=== PATIENT | female | born 1990 | race Two or more races ===

== ENCOUNTER 2020-03-22 10:11 | Emergency (ER) | payer OTHER ==
[~2020-03-22] VITALS: Ht 154.9 cm; Wt 48.1 kg
== END 2020-03-24 13:32 | disposition home or self-care (01) ==
LOC: ER 10:11
DX: L02.31 Cutaneous abscess of buttock (principal); L03.317 Cellulitis of buttock; B95.61 Methicillin susceptible Staphylococcus aureus infection as the cause of diseases classified elsewhere; T48.295A Adverse effect of other drugs acting on muscles, initial encounter; Y92.89 Other specified places as the place of occurrence of the external cause; Z03.818 Encounter for observation for suspected exposure to other biological agents ruled out
CPT/HCPCS: 49406; 72193; Q9965

== ENCOUNTER 2020-06-17 15:20 | Emergency (ER) | payer OTHER ==
[~2020-06-17] VITALS: Ht 172.7 cm; Wt 73.5 kg
== END 2020-06-17 19:53 | disposition home or self-care (01) ==
LOC: ER 15:20
DX: L02.31 Cutaneous abscess of buttock (principal); T49.3X5A Adverse effect of emollients, demulcents and protectants, initial encounter; Y92.89 Other specified places as the place of occurrence of the external cause; Z20.822 Contact with and (suspected) exposure to COVID-19

== ENCOUNTER 2020-07-05 06:05 | Emergency (ER) | payer OTHER ==
[~2020-07-05] VITALS: Ht 172.7 cm; Wt 73.5 kg
== END 2020-07-05 10:21 | disposition home or self-care (01) ==
LOC: ER 06:05
DX: L02.31 Cutaneous abscess of buttock (principal); B95.61 Methicillin susceptible Staphylococcus aureus infection as the cause of diseases classified elsewhere; L03.317 Cellulitis of buttock

== ENCOUNTER 2020-08-23 18:25 | Inpatient (IN) | payer OTHER ==
[~2020-08-23] VITALS: Ht 172.7 cm; Wt 73.5 kg
--- NOTE | 2020-08-23 18:45 | NUR ---
SE RECIBE PACIENTE ALERTA, ORIENTADA X 3 ESFERAS REFIERE TENER ABSCESO EN AREA DE GLUTEO TYLER HACE 7 HOUSE.
--- NOTE | 2020-08-23 20:11 | NUR ---
IV LINE IS STARTED ON PATIENT'S RIGHT HAND AND BLOOD SAMPLES ARE TAKEN IN ORDER TO COMPLETE LABS. SALINE LOCK IS PLACED ON IV LINE AND IV MEDS AND IV FLUIDS ARE ADMINISTERED ACCORDINGLY.
[2020-08-28] MEDS ORDERED: INTESTINEX680 M1 PO (17:00)
[2020-08-28] MEDS ORDERED: PEPCID AC20 MG PO (17:00)
[2020-08-28] MEDS ORDERED: MOXIFLOXACIN H400 MG PO (17:00)
== END 2020-08-29 07:17 | disposition home or self-care (01) | DRG 603 ==
LOC: ER 18:25 → MEDJ 22:14
PROVIDERS: ADMIT Internal Medicine; ATTEND Internal Medicine
PROC: 0Y9130Z Drainage of Left Buttock with Drainage Device, Percutaneous Approach (ICD-10-PCS; principal; 2020-08-23)
PROC: 8E0ZXY6 Isolation (ICD-10-PCS; 2020-08-26)
PROC: 02HV33Z Insertion of Infusion Device into Superior Vena Cava, Percutaneous Approach (ICD-10-PCS; 2020-08-26)
PROC: 0WP Anatomical Regions, General, Removal (ICD-10-PCS; 2020-08-28)
PROC: 02PY33Z Removal of Infusion Device from Great Vessel, Percutaneous Approach (ICD-10-PCS; 2020-08-28)
DX: L02.31 Cutaneous abscess of buttock (principal); B95.61 Methicillin susceptible Staphylococcus aureus infection as the cause of diseases classified elsewhere; L03.317 Cellulitis of buttock
CPT/HCPCS: 72198

== ENCOUNTER 2021-06-03 10:49 | Emergency (ER) | payer OTHER ==
[~2021-06-03] VITALS: Ht 172.7 cm; Wt 77.1 kg
[~2021-06-03 10:49] MED LIST: INTESTINEX680 M1 PO; MOXIFLOXACIN H400 MG PO; PEPCID AC20 MG PO
[2021-06-03] MEDS ORDERED: NAPROXEN500 MG (11:03)
== END 2021-06-03 17:18 | disposition home or self-care (01) ==
LOC: ER 10:49
DX: L02.31 Cutaneous abscess of buttock (principal)

== ENCOUNTER 2023-12-15 09:00 | Emergency (ER) | payer OTHER ==
[~2023-12-15] VITALS: Ht 172.7 cm; Wt 92.5 kg
[~2023-12-15 09:00] MED LIST changes: +NAPROXEN500 MG
[2023-12-15 09:08] VITALS: BP 136/70; O2SAT 100
[2023-12-15] MEDS ORDERED: KETOROLAC TROMETHAMINE 60 MG VIAL IM ONE ×2 (09:26→09:30)
[2023-12-15 09:52] LABS: HEMATOCRIT 36.6 % (36.0-45.00); HEMOGLOBIN 12.7 g/dL (12.0-15.00); MEAN CELL VOLUME 90.4 fL (80.00-100.00); MEAN CORPUSCULAR HEMOGLOBIN 31.5 pg (27.00-32.0); MEAN CORPUSCULAR HGB CONC 34.8 g/dl (32.0-36.0); PLATELET COUNT 260 K/uL (150-450); RED BLOOD COUNT 4.05 M/uL (4.00-6.00); RED CELL DISTRIBUTION WIDTH 13.7 % (11.5-14.5)
[2023-12-15 10:35] LABS: ERYTHROCYTE SEDIMENTATION RATE 30 mm/hr
[2023-12-15 10:48] LABS: ANION GAP 6 (10.0-20.0); BLOOD UREA NITROGEN 15 mg/dL (7-18); BUN CREA RATIO 22 (7.0-25.0); CALCIUM 9.7 mg/dL (8.5-10.1); CARBON DIOXIDE 30 mEq/L (21-32); CHLORIDE 108 mmol/L (98-107); CREATININE SERUM 0.68 mg/dL (0.55-1.02); GFR 100.27; GLUCOSE FASTING 51 mg/dL (65-100); OSMOLALITY SERUM 278 MOSM/KG (275-295); POTASSIUM 4.02 mEq/L (3.5-5.1); SODIUM 140 mmol/L (136-145)
[2023-12-15 11:01] LABS: C-REACTIVE PROTEIN 0.33 MG/DL (0.00-0.29)
[2023-12-15 11:02] LABS: HCG QUANTITATIVE < 1 mUI/mL (1-3)
[2023-12-15] MEDS ORDERED: ONDANSETRON HCL 2 MG/ML VIAL ONE (14:29)
[2023-12-15] MEDS ORDERED: ONDANSETRON HCL 2 MG/ML VIAL IM ONE (14:30)
== END 2023-12-15 14:41 | disposition home or self-care (01) ==
LOC: ER 09:01
PROVIDERS: General Practice
DX: N83.292 Other ovarian cyst, left side (principal); L92.3 Foreign body granuloma of the skin and subcutaneous tissue

== ENCOUNTER 2024-02-03 14:25 | Inpatient (IN) | payer OTHER ==
[~2024-02-03] VITALS: Ht 152.4 cm; Wt 91.6 kg
--- NOTE | 2024-02-03 14:44 | NUR ---
PTE ALERTA Y ORIENTADA X3 QUIEN REFIERE VENIR POR [facility], EN ADICION MISMA INDICA LAMAR SIDO OPERADA DE ABCESO INTERNO POR MD ALCAZAR. PTE REFIERE HACE 3 SEMANAS SENTIR MOLESTIA AL SENTARSE EN EL GLUTEO DERECHO
[2024-02-03] MEDS ORDERED: KETOROLAC TROMETHAMINE 60 MG VIAL IM ONE (15:15)
[2024-02-03] MEDS ORDERED: CEFTRIAXONE SODIUM 1,000 MG VIAL IV ONE (15:15)
[2024-02-03 15:44] LABS: ERYTHROCYTE SEDIMENTATION RATE 40 mm/hr
[2024-02-03 15:46] LABS: HEMATOCRIT 37.4 % (36.0-45.00); HEMOGLOBIN 12.6 g/dL (12.0-15.00); MEAN CELL VOLUME 90.4 fL (80.00-100.00); MEAN CORPUSCULAR HEMOGLOBIN 30.4 pg (27.00-32.0); MEAN CORPUSCULAR HGB CONC 33.7 g/dl (32.0-36.0); PLATELET COUNT 251 K/uL (150-450); RED BLOOD COUNT 4.14 M/uL (4.00-6.00); RED CELL DISTRIBUTION WIDTH 13.9 % (11.5-14.5)
--- NOTE | 2024-02-03 15:52 | NUR ---
SE ORIENT A APTE SOBRE TX MEDICO Y LA MISMA REFIERE ENTENDER. SE CANALIZA A PTE CON ANGIO #20, SE ADMINISTRAN MEDICAMENTOS Y SE RECOLECTAN MUESTRAS DE LAB YAMILETH ORDEN MEDICA BAJO MEDIDAS ASEPTICAS.
[2024-02-03 16:24] LABS: ALBUMIN 3.8 gm/dL (3.4-5.0); ALKALINE PHOSPHATASE 106 U/L (50-136); ALT/SGPT 48 U/L (12-78); ANION GAP 7 (10.0-20.0); AST/SGOT 38 U/L (15-37); BILIRUBIN TOTAL 0.35 mg/dL (0.3-1.2); BLOOD UREA NITROGEN 8 mg/dL (7-18); BUN CREA RATIO 11 (7.0-25.0); C-REACTIVE PROTEIN 5.61 MG/DL (0.00-0.29); CALCIUM 9.6 mg/dL (8.5-10.1); CARBON DIOXIDE 30 mEq/L (21-32); CHLORIDE 106 mmol/L (98-107); CREATININE SERUM 0.72 mg/dL (0.55-1.02); GFR 93.87; GLOBULINA 3.9 G/DL (2.4-3.5); GLUCOSE FASTING 64 mg/dL (65-100); HCG QUANTITATIVE < 1 mUI/mL (1-3); OSMOLALITY SERUM 274 MOSM/KG (275-295); POTASSIUM 3.87 mEq/L (3.5-5.1); SODIUM 139 mmol/L (136-145); TOTAL PROTEIN 7.7 gm/dL (6.4-8.2)
[2024-02-03] MEDS ORDERED: ACETAMINOPHEN 500 MG GEL..CAP PO PRN (19:15)
[2024-02-03] MEDS ORDERED: FAMOTIDINE/PF 20 MG in 0.9 % SODIUM CHLORIDE 8 ML IV PUSH SCH (19:16)
[2024-02-03] MEDS ORDERED: LACTOBACILLUS ACIDOPHILUS 1 CAP CAP PO SCH (19:20)
[2024-02-03] MEDS ORDERED: PIPERACILLIN/TAZOBACTAM SODIUM 3.375 GM in DEXTROSE 5 % IN WATER 100 ML IV SCH (19:21)
[2024-02-03] MEDS ORDERED: KETOROLAC TROMETHAMINE 15 MG VIAL IU ONE (19:30)
[2024-02-03] MEDS ORDERED: 0.9 % SODIUM CHLORIDE 1,000 ML IV SCH ×2 (19:30)
[2024-02-03 20:20] LABS: URINE APPEARANCE Clear; URINE BILIRRUBIN Negative (NEGATIVE); URINE BLOOD Small; URINE COLOR Yellow; URINE GLUCOSE Negative (NEGATIVE); URINE KETONE Negative (NEGATIVE); URINE LEUKOCYTE Negative; URINE NITRATE Negative; URINE PROTEIN Negative (NEGATIVE); URINE UROBILINOGEN 0.2 E.U./dl
[2024-02-03 20:21] LABS: URINE EPITHELIAL CELLS 5.3 uL (0.0-38.8); URINE RBC 8.2 uL (0.0-20.8); URINE WBC 2.6 uL (0.0-23.2)
[2024-02-03 20:33] LABS: PARTIAL THROMBOPLASTIN TIME 28.3 SECONDS (22.0-34.0); PROTHROMBIN TIME 10.9 SECONDS (9.0-11.5)
[2024-02-04 02:15] VITALS: BP 122/75; O2SAT 100
[2024-02-04 10:01] VITALS: BP 131/91; O2SAT 99
[2024-02-04] MEDS ORDERED: TRAMADOL HCL 50 MG TABLET PO PRN (12:45)
[2024-02-04] MEDS ORDERED: ACETAMINOPHEN 325 MG TABLET PO PRN (12:45)
[2024-02-04] MEDS ORDERED: fentaNYL CITRATE 50 MCG/ML AMPUL IV PUSH ONE (16:15)
[2024-02-04] MEDS ORDERED: MIDAZOLAM HCL 2 MG/2 ML VIAL IV PUSH ONE (16:15)
[2024-02-04] MEDS ORDERED: KETOROLAC TROMETHAMINE 30 MG VIAL IV NR (17:45)
[2024-02-05 02:26] VITALS: BP 103/61; O2SAT 99
[2024-02-05 08:39] VITALS: BP 115/7; O2SAT 98
[2024-02-05] MEDS ORDERED: MORPHINE SULFATE 4 MG/ML CARTRIDGE IV PRN (08:45)
[2024-02-05] MEDS ORDERED: KETOROLAC TROMETHAMINE 60 MG VIAL IM ONE (08:45)
[2024-02-05 18:04] VITALS: BP 124/75; O2SAT 100
[2024-02-06 01:39] VITALS: BP 120/77; O2SAT 94
[2024-02-06] MEDS ORDERED: KETOROLAC TROMETHAMINE 30 MG VIAL IV PRN (09:00)
[2024-02-06 11:15] VITALS: BP 132/77; O2SAT 99
[2024-02-06 11:22] VITALS: BP 119/76; O2SAT 98
[2024-02-06 17:39] VITALS: BP 126/80; O2SAT 100
[2024-02-07 01:53] VITALS: BP 105/67; O2SAT 98
[2024-02-07 08:28] VITALS: BP 135/85
[2024-02-07] MEDS ORDERED: DIATRIZOATE MEGLUMINE, SODIUM 30 ML BOTTLE PO ONE (09:30)
[2024-02-07 15:47] LABS: HEMATOCRIT 37.3 % (36.0-45.00); HEMOGLOBIN 12.1 g/dL (12.0-15.00); MEAN CELL VOLUME 91.4 fL (80.00-100.00); MEAN CORPUSCULAR HEMOGLOBIN 29.7 pg (27.00-32.0); MEAN CORPUSCULAR HGB CONC 32.5 g/dl (32.0-36.0); PLATELET COUNT 239 K/uL (150-450); RED BLOOD COUNT 4.09 M/uL (4.00-6.00); RED CELL DISTRIBUTION WIDTH 13.4 % (11.5-14.5)
[2024-02-07 16:28] LABS: ALBUMIN 3.5 gm/dL (3.4-5.0); BILIRUBIN TOTAL 0.32 mg/dL (0.3-1.2); CALCIUM 9.3 mg/dL (8.5-10.1); CREATININE SERUM 0.68 mg/dL (0.55-1.02); GFR 100.27; GLOBULINA 3.6 G/DL (2.4-3.5); POTASSIUM 3.79 mEq/L (3.5-5.1); TOTAL PROTEIN 7.1 gm/dL (6.4-8.2)
[2024-02-07 18:35] VITALS: BP 131/79
[2024-02-07 18:42] VITALS: BP 131/85
[2024-02-07 18:46] VITALS: BP 131/85
[2024-02-08 00:17] VITALS: BP 112/60; O2SAT 97
[2024-02-08 07:46] VITALS: BP 129/74; O2SAT 100
== END 2024-02-08 13:00 | disposition home or self-care (01) | DRG 603 ==
LOC: ER 14:26 → MEDJ 21:27
PROVIDERS: General Practice; ADMIT Internal Medicine; ATTEND Internal Medicine
PROC: BW21YZZ Computerized Tomography (CT Scan) of Abdomen and Pelvis using Other Contrast (ICD-10-PCS; 2024-02-03)
PROC: 0H98X0Z Drainage of Buttock Skin with Drainage Device, External Approach (ICD-10-PCS; principal; 2024-02-04)
PROC: BW21YZZ Computerized Tomography (CT Scan) of Abdomen and Pelvis using Other Contrast (ICD-10-PCS; 2024-02-07)
DX: L02.31 Cutaneous abscess of buttock (principal); L03.317 Cellulitis of buttock; B95.61 Methicillin susceptible Staphylococcus aureus infection as the cause of diseases classified elsewhere

== ENCOUNTER 2024-05-08 09:35 | Emergency (ER) | payer OTHER ==
[~2024-05-08] VITALS: Ht 170.2 cm; Wt 72.6 kg
[2024-05-08] MEDS ORDERED: CLINDAMYCIN PHOSPHATE 150 MG/ML (600mg) IV STA (10:04)
[2024-05-08] MEDS ORDERED: KETOROLAC TROMETHAMINE 15 MG VIAL IV STA (10:05)
[2024-05-08] MEDS ORDERED: KETOROLAC TROMETHAMINE 30 MG VIAL ONE (10:15)
[2024-05-08] MEDS ORDERED: CLINDAMYCIN PHOSPHATE 150 MG/ML (300mg) ONE (10:15)
[2024-05-08] MEDS ORDERED: KETO10TA2 PO (11:34)
[2024-05-08] MEDS ORDERED: CLEOCIN HCL150 MG PO (11:34)
== END 2024-05-08 11:36 | disposition home or self-care (01) ==
LOC: ER 09:37
DX: L03.317 Cellulitis of buttock (principal)

== ENCOUNTER 2024-05-09 13:48 | Inpatient (IN) | payer OTHER ==
[~2024-05-09] VITALS: Ht 167.6 cm; Wt 90.3 kg
[~2024-05-09 13:48] MED LIST changes: +CLEOCIN HCL150 MG PO; +KETO10TA2 PO
[2024-05-09] MEDS ORDERED: PIPERACILLIN/TAZOBACTAM SODIUM 3.375 GM VIAL IV STA (15:36)
[2024-05-09] MEDS ORDERED: KETOROLAC TROMETHAMINE 60 MG VIAL IM STA (15:36)
[2024-05-09] MEDS ORDERED: KETOROLAC TROMETHAMINE 60 MG VIAL IM ONE (16:02)
[2024-05-09] MEDS ORDERED: PIPERACILLIN/TAZOBACTAM SODIUM 3.375 GM VIAL IV ONE (16:02)
[2024-05-09 16:32] LABS: HEMATOCRIT 36.1 % (36.0-45.00); HEMOGLOBIN 12.5 g/dL (12.0-15.00); MEAN CELL VOLUME 88.9 fL (80.00-100.00); MEAN CORPUSCULAR HEMOGLOBIN 30.7 pg (27.00-32.0); MEAN CORPUSCULAR HGB CONC 34.6 g/dl (32.0-36.0); PLATELET COUNT 272 K/uL (150-450); RED BLOOD COUNT 4.06 M/uL (4.00-6.00); RED CELL DISTRIBUTION WIDTH 14.5 % (11.5-14.5)
[2024-05-09 17:10] LABS: CALCIUM 10.2 mg/dL (8.5-10.1); CREATININE SERUM 0.74 mg/dL (0.55-1.02); GFR 90.95; POTASSIUM 3.42 mEq/L (3.5-5.1)
[2024-05-09] MEDS ORDERED: ACETAMINOPHEN 500 MG GEL..CAP PO PRN (18:15)
[2024-05-09] MEDS ORDERED: KETOROLAC TROMETHAMINE 15 MG VIAL IU ONE (18:30)
[2024-05-09] MEDS ORDERED: 0.9 % SODIUM CHLORIDE 1,000 ML IV SCH (18:30)
[2024-05-09 20:02] LABS: PH,URINE 5.5 (5.0-8.0); URINE APPEARANCE Clear; URINE BILIRRUBIN Negative (NEGATIVE); URINE BLOOD Negative; URINE COLOR Yellow; URINE GLUCOSE Negative (NEGATIVE); URINE KETONE Trace (NEGATIVE); URINE LEUKOCYTE Negative; URINE NITRATE Negative; URINE PROTEIN Negative (NEGATIVE); URINE UROBILINOGEN 0.2 E.U./dl
[2024-05-09 20:06] LABS: URINE EPITHELIAL CELLS 6.9 uL (0.0-38.8); URINE RBC 6.6 uL (0.0-20.8); URINE WBC 5.5 uL (0.0-23.2)
[2024-05-09 20:26] LABS: URINE CAST 0.29 uL (0.0-1.40)
[2024-05-09] MEDS ORDERED: KETOROLAC TROMETHAMINE 30 MG VIAL ONE (20:36)
[2024-05-09 21:10] LABS: INR 0.96; PARTIAL THROMBOPLASTIN TIME 26.8 SECONDS (22.0-34.0); PROTHROMBIN TIME 10.5 SECONDS (9.0-11.5)
[2024-05-09 22:33] VITALS: BP 109/52
[2024-05-10] MEDS ORDERED: PIPERACILLIN/TAZOBACTAM SODIUM 3.375 GM in DEXTROSE 5 % IN WATER 100 ML IV SCH
[2024-05-10 00:26] VITALS: BP 107/49
[2024-05-10] MEDS ORDERED: FAMOTIDINE/PF 20 MG in 0.9 % SODIUM CHLORIDE 8 ML IV PUSH SCH (09:00)
[2024-05-10] MEDS ORDERED: ENOXAPARIN SODIUM 40 MG/0.4 ML SYRINGE SUBCUTANEO SCH (09:00)
[2024-05-10 09:10] VITALS: BP 112/77; O2SAT 97
[2024-05-10] MEDS ORDERED: MEPERIDINE HCL 25 MG/ML AMPUL IM PRN (10:30)
[2024-05-10 17:44] VITALS: BP 126/73
[2024-05-10] MEDS ORDERED: MEPERIDINE HCL 25 MG/ML AMPUL IV PRN (18:48)
[2024-05-10 20:50] VITALS: BP 123/76
[2024-05-11 00:46] VITALS: BP 112/71; O2SAT 98
[2024-05-11] MEDS ORDERED: KETOROLAC TROMETHAMINE 30 MG VIAL IV STA (09:05)
[2024-05-11 09:13] VITALS: BP 120/73; O2SAT 99
[2024-05-11 11:06] LABS: MEAN CELL VOLUME 90.8 fL (80.00-100.00); MEAN CORPUSCULAR HEMOGLOBIN 29.6 pg (27.00-32.0); MEAN CORPUSCULAR HGB CONC 32.5 g/dl (32.0-36.0); RED BLOOD COUNT 3.74 M/uL (4.00-6.00); RED CELL DISTRIBUTION WIDTH 13.9 % (11.5-14.5)
[2024-05-11 11:08] LABS: HEMOGLOBIN 11.1 g/dL (12.0-15.00); PLATELET COUNT 215 K/uL (150-450)
[2024-05-11 11:47] LABS: CALCIUM 8.9 mg/dL (8.5-10.1); CREATININE SERUM 0.69 mg/dL (0.55-1.02); GFR 98.59; POTASSIUM 3.97 mEq/L (3.5-5.1)
[2024-05-11 17:18] VITALS: BP 123/71
[2024-05-11] MEDS ORDERED: FAMOtidine 20 MG TABLET PO SCH (21:00)
[2024-05-12 00:48] VITALS: BP 106/57
[2024-05-12 09:18] VITALS: BP 113/64; O2SAT 99
[2024-05-12] MEDS ORDERED: KETOROLAC TROMETHAMINE 30 MG VIAL IV SCH (12:55)
[2024-05-12 16:58] VITALS: BP 139/85; O2SAT 98
[2024-05-13 02:14] VITALS: BP 108/60
[2024-05-13 08:20] VITALS: BP 133/82
== END 2024-05-13 12:26 | disposition home or self-care (01) | DRG 603 ==
LOC: ER 13:51 → SEC-K 19:54 → MEDI 19:54
PROVIDERS: General Practice; ADMIT Student in an Organized Health Care Education/Training Program; ATTEND Student in an Organized Health Care Education/Training Program
PROC: BW21ZZZ Computerized Tomography (CT Scan) of Abdomen and Pelvis (ICD-10-PCS; 2024-05-09)
PROC: 0H98XZZ Drainage of Buttock Skin, External Approach (ICD-10-PCS; principal; 2024-05-10)
DX: L02.31 Cutaneous abscess of buttock (principal); R22.2 Localized swelling, mass and lump, trunk

== ENCOUNTER 2024-05-25 10:33 | Inpatient (IN) | payer OTHER ==
[~2024-05-25] VITALS: Ht 172.7 cm; Wt 90.7 kg
--- NOTE | 2024-05-25 11:44 | NUR ---
SE RECIBE PTE ALERTA ORIENTADA X3.PTE REFIERE TENER ABCCESO EN GLUTEO DERECHO EL CUAL FUER DRENADO EL PASADO 05/10/[address]GORRO SHARMA,PTE EN TX DE ANTIBIOTICOS LOS CUALES CAUSARON DIARREAS X 5 LAS ULTIMAS 24 HORAS.
[2024-05-25] MEDS ORDERED: CLINDAMYCIN PHOSPHATE 150 MG/ML (300mg) IV ONE (12:15)
[2024-05-25] MEDS ORDERED: CLINDAMYCIN PHOSPHATE 150 MG/ML (300mg) ONE (12:33)
--- NOTE | 2024-05-25 12:55 | NUR ---
SE ORIENTA APTE SOBRE TX M,EDIVO Y EL MISMO REFIERE ENTENDER. SE CANALIZA PTE EN BRAZO TYLER, SE RECOLECTAN MUESTRAS DE LAB Y SE ADMINSITRAN MEDICAMENTO YAMILETH ORDEN MEDICA BAJO MEDIDAS ASEPTICAS.
[2024-05-25 12:58] LABS: HEMATOCRIT 36.2 % (36.0-45.00); HEMOGLOBIN 12.3 g/dL (12.0-15.00); MEAN CORPUSCULAR HEMOGLOBIN 30.2 pg (27.00-32.0); MEAN CORPUSCULAR HGB CONC 33.9 g/dl (32.0-36.0); PLATELET COUNT 311 K/uL (150-450); RED BLOOD COUNT 4.06 M/uL (4.00-6.00); RED CELL DISTRIBUTION WIDTH 14.7 % (11.5-14.5)
[2024-05-25] MEDS ORDERED: KETOROLAC TROMETHAMINE 60 MG VIAL IM ONE ×2 (13:30→13:55)
[2024-05-25 14:07] LABS: CALCIUM 9.7 mg/dL (8.5-10.1); CREATININE SERUM 0.71 mg/dL (0.55-1.02); GFR 95.4; POTASSIUM 3.72 mEq/L (3.5-5.1)
[2024-05-25] MEDS ORDERED: 0.9 % SODIUM CHLORIDE 1,000 ML IV SCH (21:45)
[2024-05-25] MEDS ORDERED: MORPHINE SULFATE 4 MG/ML CARTRIDGE IV ONE (21:45)
[2024-05-25] MEDS ORDERED: KETOROLAC TROMETHAMINE 15 MG VIAL IU ONE (21:45)
[2024-05-25] MEDS ORDERED: ACETAMINOPHEN 500 MG GEL..CAP PO PRN (21:45)
[2024-05-26] MEDS ORDERED: PIPERACILLIN/TAZOBACTAM SODIUM 3.375 GM in DEXTROSE 5 % IN WATER 100 ML IV SCH
[2024-05-26] MEDS ORDERED: PIPERACILLIN/TAZOBACTAM SODIUM 3.375 GM VIAL IV ONE (01:12)
[2024-05-26] MEDS ORDERED: KETOROLAC TROMETHAMINE 30 MG VIAL ONE ×2 (01:12→10:07)
[2024-05-26] MEDS ORDERED: FAMOTIDINE/PF 20 MG/2 ML VIAL ONE (01:12)
[2024-05-26 03:39] VITALS: BP 115/65; O2SAT 98
[2024-05-26 05:45] LABS: PARTIAL THROMBOPLASTIN TIME 28.7 SECONDS (22.0-34.0); PROTHROMBIN TIME 10.9 SECONDS (9.0-11.5)
[2024-05-26] MEDS ORDERED: ONDANSETRON HCL 4 MG in DEXTROSE 5 % IN WATER 50 ML IV SCH (09:00)
[2024-05-26] MEDS ORDERED: FAMOTIDINE/PF 20 MG in 0.9 % SODIUM CHLORIDE 8 ML IV PUSH SCH (09:00)
[2024-05-26 09:08] VITALS: BP 127/77
[2024-05-26] MEDS ORDERED: KETOROLAC TROMETHAMINE 30 MG VIAL IM PRN (10:15)
[2024-05-26] MEDS ORDERED: KETOROLAC TROMETHAMINE 30 MG VIAL IV PRN (10:54)
[2024-05-26 15:20] LABS: PH,URINE 6.5 (5.0-8.0); URINE APPEARANCE Clear; URINE BILIRRUBIN Negative (NEGATIVE); URINE BLOOD Negative; URINE COLOR Yellow; URINE GLUCOSE Negative (NEGATIVE); URINE KETONE Trace (NEGATIVE); URINE LEUKOCYTE Negative; URINE NITRATE Negative; URINE PROTEIN Negative (NEGATIVE); URINE UROBILINOGEN 0.2 E.U./dl
[2024-05-26 15:25] LABS: URINE BACTERIA 59.9 uL (0.0-1933); URINE EPITHELIAL CELLS 9.9 uL (0.0-38.8); URINE RBC 16.2 uL (0.0-20.8); URINE WBC 3.1 uL (0.0-23.2)
[2024-05-26 15:36] LABS: URINE CAST 0.14 uL (0.0-1.40)
[2024-05-26 16:49] VITALS: BP 112/75; O2SAT 100
== END 2024-05-26 20:18 | disposition left against medical advice (07) | DRG 603 ==
LOC: ER 10:36 → MEDI 22:49 → SEC-K 22:49 → MEDI 05-26 01:22
PROVIDERS: Emergency Medicine; General Practice; ADMIT Student in an Organized Health Care Education/Training Program; ATTEND Student in an Organized Health Care Education/Training Program
DX: L03.317 Cellulitis of buttock (principal); A90 Dengue fever [classical dengue]; L02.31 Cutaneous abscess of buttock; Z53.29 Procedure and treatment not carried out because of patient's decision for other reasons